=== PATIENT | male | born 1955 | race Caucasian/White ===

== ENCOUNTER 2024-07-19 19:45 | Inpatient (IN) | payer MEDICARE, OTHER, SELFPAY ==
[2024-07-19] VITALS (8 sets, daily range): BP systolic 105–142; BP diastolic 68–87; BMI 27.8; BMI 25.6
--- NOTE | 2024-07-19 16:22 | ED.GENMED ---
History of Present Illness
General
Chief Complaint: Abdominal Pain
Source: patient and spouse
Time Seen by Provider: 07/19/24 16:09
History of Present Illness
History of Present Illness:
68-year-old male presents to the emergent complaining of abdominal pain. Patient states has been having some level of abdominal pain for weeks to months. However the pain became quite severe 3 days ago. The patient has nausea but no vomiting. He
was mildly constipated but this resolved with some dietary changes. The pain in his abdomen is worse with movement. He had a subjective fever Wednesday night when the pain was severe. He has had bilateral hernia repairs but no other abdominal
operations. Patient went for a CT of his abdomen and pelvis at an outpatient imaging center. He was told he had 'a ruptured diverticulitis'. He comes to the emergency room with the disc.
Phy Exam
Physical Exam
Physical Exam:
General: Awake, Alert, Oriented X3. No acute distress.
Vitals: unremarkable
Head: Atraumatic
Eyes: Pupils equal, EOMI
Throat: Airway intact, no exudates
Neck: Trachea midline
Lungs: Clear and equal b/l
Heart: Regular rate, no murmurs
Abd: Soft, significant tenderness left lower quadrant, no significant tenderness elsewhere in the abdomen, No pulsatile mass
Neuro: Nonfocal
Skin: Warm, dry, no rash
Extremities: pulses equal b/l, no edema
Sepsis
Sepsis Screening
Sepsis Assessment: Sepsis Ruled Out
Sepsis Screen
Sepsis Screen: Sepsis Ruled Out
Date: 07/19/24
Time: 19:32
Course
Orders/Labs/Results
Orders:
Orders
07/19/24 16:20
Ketorolac [Toradol] 15 mg IV NOW STA
Ondansetron Injectable [Zofran] 4 mg IV NOW STA
07/19/24 16:21
Lactated Ringers [Lr] 1,000 ml IV BOLUS
07/19/24 16:56
Basic Metabolic Panel Urgent
Complete Blood Count/With Diff Urgent
07/19/24 16:59
HYDROmorphone [Dilaudid] 0.5 mg IV NOW STA
07/19/24 17:29
Piperacillin/Tazo 4.5 Gram [Zosyn] 4.5 gram in 100 ml IV NOW
07/19/24 18:57
Admit/Transfer Patient As Directed
Co-Sign Provider:
Level of Care: Inpatient admission
Assign to:: Medical/Surgical
Physician / Group: Zahra Otto - [facility]
Diagnosis: acute sigmoid diverticulitis with microperforation
Reason for Hospitalization: acute sigmoid diverticulitis with microperforation - IV Abx
Expected length of stay greater than two midnights?: Yes
ELOS- Estimated Length of Stay in days: 3
I certify the patient meets the requirements for IP care: Yes
Code Status As Directed
Resuscitation Status: Full Code
PRN Pain Medication Management As Directed
May give lesser potent ordered pain med per pt: Yes
preference::
Protocol:: Medication orders for pain may be administered in a
manner that supports deferring to patient preference
when the pt is:
- Requesting an ordered lesser potent pain medication.
Least to most potent pain medications are defined
as: acetaminophen < NSAID < tramadol < opioids
(morphine, oxycodone, hydromorphone).
- Requesting a lesser dose of the same medication IF
ORDERED.
- Requesting a less intrusive route of administration
if both routes are prescribed by the provider (PO <
IV).
07/19/24 19:30
HYDROmorphone [Dilaudid] 0.5 mg IV NOW STA
Abnormal Lab Results
07/19/24
16:56
Absolute Lymphs (auto) 0.6 L 10^3/uL
(1.2-3.4)
Absolute Monos (auto) 0.8 H 10^3/uL
(0.1-0.6)
Neutrophils % 78.3 H %
(42.2-75.2)
Lymphocytes % 8.8 L %
(20.5-51.1)
Monocytes % 12.1 H %
(1.7-9.3)
07/19/24 16:56
07/19/24 16:56
Vital Signs
Initial and Last Documented VS:
Initial Vital Signs
Temp Pulse Resp BP Pulse Ox
99.1 F 94 16 142/81 94
07/19/24 15:57 07/19/24 15:57 07/19/24 15:57 07/19/24 15:57 07/19/24 15:57
Last Documented Vital Signs
Temp Pulse Resp BP Pulse Ox
99.1 F 72 15 126/69 93
07/19/24 15:57 07/19/24 18:30 07/19/24 18:30 07/19/24 18:00 07/19/24 18:30
MDM/Problems Addressed
Differential Diagnosis Includes:
Diverticulitis with contained perforation, diverticulitis with free perforation, diverticulitis with abscess
MDM/Problems Addressed:
Patient presents with left lower quad abdominal pain and an abnormal CT. Radiology he reviewed the CT and it does show sigmoid diverticulitis with retroperitoneal air suggestive of a posterior perforation into the retroperitoneal space. Patient
was evaluated by Dr. Sylvester. No indication for emergent surgery. He agrees with hospitalization, IV antibiotics and watchful waiting. Patient added to the hospital service.
*Radiology
Radiology exam reviewed: other
*Pulse Oximetry
Patient hypoxic: no
*Critical Care Note
Total Time (30-74mins, 75-104mins- exclusive of procedures): Not Applicable
ED Attending Note
-
Portions of this chart may have been created with voice recognition software.� Occasional wrong word or��sound alike� substitutions may have occurred due to the inherent limitations of voice recognition software.
Discharge Plan
Departure
Patient Disposition: Admit
Date of Disposition: 07/19/24
Time of Disposition: 17:41
Admit to: Med/Surg
Presentation/result/management discussed w/ accepting MD/DO: Hospitalist
Condition: Fair
Discharge Problem:
Diverticulitis of colon with perforation
Referrals:
Joshua Bettencourt DO [Family Provider] -
Interventions
Interventions:
*Risk Screen - Suicide Last Done: 07/19/24 15:57
*General Assessment Last Done: 07/19/24 16:52
*Neglect/Abuse Screening Last Done: 07/19/24 15:57
ED- Fall Risk Assessment Last Done: 07/19/24 16:52
*ED COVID-19 Vaccine History Last Done: 07/19/24 16:52
QG-Gveafd-Voeexzrjvz Assessment Last Done: 07/19/24 18:37
Discharge Date and Time
Print Language: ICELANDIC
[2024-07-19] MEDS: TORADOL 15 MG IV (16:46)
[2024-07-19] MEDS: ZOFRAN 4 MG IV (16:48)
[2024-07-19] MEDS: LR 1000 IV ×2 (16:51→21:42)
[2024-07-19] MEDS: DILAUDID 0.5 MG IV ×2 (17:02→19:58)
[2024-07-19 17:05] LABS: % Basophils 0.3 % (0-2); % Eosinophils 0.1 % (0-6); % Immature Granulocytes 0.4 % (0-0.5); % Lymphocytes 8.8 % (20.5-51.1); % Monocytes 12.1 % (1.7-9.3); % Neutrophils 78.3 % (42.2-75.2); Absolute Lymphocytes 0.6 10^3/uL (1.2-3.4); Absolute Monocytes 0.8 10^3/uL (0.1-0.6); Absolute Neutrophils 5.3 10^3/uL (1.4-6.5); Hematocrit 43.1 % (39.0-52.0); Hemoglobin 14.4 g/dL (13.0-18.0); Mean Corp Hgb Conc. 33.4 g/dL (33.0-37.0); Mean Corpuscular Hgb 30.4 pg (27.0-31.0); Mean Corpuscular Volume 90.9 fL (80.0-94.0); Mean Platelet Volume 9.7 fL (7.4-10.4); Nucleated Red Blood Cells % 0 % (-); Platelet Count 213 10^3/uL (130-400); Red Blood Cell Count 4.74 10^6/uL (4.70-6.10); Red Cell Dist. Width 13.7 % (11.5-14.5); White Blood Cell Count 6.7 10^3/uL (4.8-10.8)
[2024-07-19 17:23] LABS: Blood Urea Nitrogen 19 mg/dl (9-20); Calcium 8.7 mg/dl (8.4-10.2); Carbon Dioxide 24 mmol/L (22-30); Chloride 99 mmol/L (98-107); Estimated Creatinine Clearance 73 ml/min; Glucose 94 mg/dl (70-99); Potassium 4.1 mmol/L (3.5-5.1); Sodium 135 mmol/L (135-145); eGFR > 60.00
--- NOTE | 2024-07-19 18:17 | W.PN.UPDATE ---
Update Note
Progress Note Update
The patient was seen and examined, and I reviewed his medical record and imaging studies. Full consult to follow.
68-year-old male admitted with his first episode of sigmoid diverticulitis. He has not felt well for several weeks and possibly months. He had some low-grade left-sided abdominal discomfort that became worse recently. He has some chills but no
documented fever. He has had constipation recently and tried different laxatives and diet. He has some nausea but no vomiting. He underwent a recent colonoscopy and was told it was normal. 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
on chemotherapy. He has not had any previous abdominal surgery other than inguinal hernia repairs and an umbilical hernia repair.
On physical examination he is afebrile (temperature 99.1) and his vital signs are stable. He is not tachycardic and he appears nontoxic. He has focal tenderness left lower quadrant with localized rebound but the remaining quadrants are soft.
There is no tympany. His white count is normal. CT scan of the abdomen pelvis that was performed as an outpatient reveals mild inflammation of the sigmoid colon with some localized retroperitoneal air. There is no free intra-abdominal air and
there is no abscess.
I reviewed the current findings with the patient and his and discussed the treatment options. We discussed nonoperative management with antibiotics and bowel rest versus surgery. Surgery at this time could involve a temporary colostomy. We
discussed the risks and benefits of each and the plan is for trial of nonoperative management. Recommend keeping him n.p.o. for now and broad-spectrum antibiotics. Will follow.
[2024-07-19] MEDS: ZOSYN 100 IV (18:27)
--- NOTE | 2024-07-19 19:04 | HPS.HSE ---
Addendum entered and electronically signed by Zahra Otto MD 07/19/24 20:11:
Allergies
Allergy/AdvReac Type Severity Reaction Status Date / Time
No Known Allergies Allergy Unverified 07/19/24 15:57
Home Medications
alfuzosin 10 mg tablet,extended release 24 hr 10 mg PO DAILY 07/19/24
irbesartan 150 mg tablet 150 mg PO DAILY 07/19/24
levothyroxine 75 mcg capsule 75 mcg PO DAILY 07/19/24
omeprazole 40 mg capsule,delayed release 40 mg PO DAILY 07/19/24
pregabalin 150 mg capsule (Lyrica) 150 mg PO DAILY 07/19/24
zolpidem 10 mg tablet (Ambien) 10 mg PO HS 07/19/24
Original Note:
Family Physician
-
Family Physician: Joshua Bettencourt
Chief Complaint
-
abd pain
History of Present Illness
68 y/o M hx of lymphoma (low grade per , not on treatment, followed at [facility]), presents with abd pain. He reports chronic abd pain for weeks to months but in past 3 days became severe. Sharp, LLQ, nonradiating. 12/21. + NAusea no vomiting. Reports
fever Wednesday along with chills. Recently had a colonoscopy - was told its normal. Outpatient had a CT scan via [place] which was interpreted by Colorectal surgery as mild inflammation of the sigmoid colon with some localized retroperitoneal
air. Patient was admitted to hospital for further eval and treatment.
Medical History
Past Medical History
Past Medical History: Reports Other (lymphoma (low grade per , not on treatment, followed at [facility]))
Past Surgical History: Reports Other ( inguinal hernia repairs, umbilical hernia repair)
Social History
Alcohol: None
Drug: None
Personal:
Living: With Family
Family History
Family History: Not pertinent
Allergies / Home Medications
Allergies reflects when Allergies were last updated in [facility].
Home Medications with original date entered in [facility]
Allergy/Medication List:
Allergies
Allergy/AdvReac Type Severity Reaction Status Date / Time
No Known Allergies Allergy Unverified 07/19/24 15:57
Review of Systems
-
A 12 point ROS was completed and negative except as noted: Yes
Physical Exam
Vital Signs
Vital Signs
Temp Pulse Resp BP Pulse Ox
99.1 F 72 15 126/69 93
07/19/24 15:57 07/19/24 18:30 07/19/24 18:30 07/19/24 18:00 07/19/24 18:30
Physical Exam
General: No Apparent Distress
HEENT: NormoCephalic and Anicteric
Respiratory: Clear; No Wheezes
Cardiac: S1/S2 and Regular Rhythm
GI: Tender (localized to LLQ with some rebound, no guarding)
Musculoskeletal: No Edema
Neuro: AO x 3
Hematologic/Lymphatic: No Lymphadenopathy
Psych: Calm
Laboratory Results
-
07/19/24 16:56
07/19/24 16:56
Data Reviewed
-
Lab Data: Labs Reviewed by me
Impression/Plan
-
Assessment:
Acute sigmoid diverticulitis with microperforation
- evaluated by CRS: outpatient CT scan (performed at [facility]) reveals mild inflammation of the sigmoid colon with some localized retroperitoneal air per their note. There is no free intra-abdominal air and there is no abscess
- IVF
- NPO
- Zosyn
Hx of lymphoma, unknown type but low-grade per family
- followed at [facility]
DVT ppx: Lovenox
Code: Full
--- NOTE | 2024-07-19 20:12 | W.PN.UPDATE ---
Update Note
Progress Note Update
additional PMH includes HTN, Hypothyroidism, GERD
[2024-07-19] MEDS: LOVENOX 40 MG SC (21:41)
--- NOTE | 2024-07-19 22:43 | TRANSFER ---
Received pt from ED at 2020 w dx Acute sigmoid diverticulitis. Pt AAOx3 able to make all needs known. Stated LLQ of abdomen TTP but was medicated in ED prior to arrival and has no pain. VS WNL. Discussed w pt diet ordered and pt verbalized
understanding. Call palacios within reach, safety maintained.
[2024-07-19] MEDS: ZOSYN 50 IV (23:35)
[2024-07-19] MEDS: AMBIEN 10 MG PO (23:35)
[2024-07-19] MEDS: MORPHINE SULFATE 2 MG IV (23:37)
[2024-07-20] MEDS: TYLENOL 650 MG PO ×2 (02:52→21:11)
[2024-07-20] MEDS: SYNTHROID 75 MCG PO (05:33)
[2024-07-20] MEDS: ZOSYN 50 IV ×3 (05:33→17:41)
[2024-07-20 05:44] LABS: Hematocrit 38.8 % (39.0-52.0); Hemoglobin 13.3 g/dL (13.0-18.0); Mean Corp Hgb Conc. 34.3 g/dL (33.0-37.0); Mean Corpuscular Hgb 31.4 pg (27.0-31.0); Mean Corpuscular Volume 91.5 fL (80.0-94.0); Mean Platelet Volume 9.5 fL (7.4-10.4); Platelet Count 196 10^3/uL (130-400); Red Blood Cell Count 4.24 10^6/uL (4.70-6.10); Red Cell Dist. Width 13.7 % (11.5-14.5)
[2024-07-20 06:06] LABS: Blood Urea Nitrogen 17 mg/dl (9-20); Calcium 8.4 mg/dl (8.4-10.2); Carbon Dioxide 27 mmol/L (22-30); Chloride 99 mmol/L (98-107); Estimated Creatinine Clearance 67 ml/min; Glucose 103 mg/dl (70-99); Sodium 134 mmol/L (135-145); eGFR > 60.00
[2024-07-20 07:33] VITALS: BP 142/74
[2024-07-20] MEDS: MORPHINE SULFATE 2 MG IV ×3 (07:40→22:32)
[2024-07-20] MEDS: PROTONIX 40 MG PO (07:50)
[2024-07-20] MEDS: FLOMAX 0.4 MG PO (07:50)
[2024-07-20] MEDS: AVAPRO 150 MG PO (07:50)
[2024-07-20] MEDS: LYRICA 150 MG PO (07:50)
--- NOTE | 2024-07-20 09:22 | CON.CRS ---
Consultation
-
Date/Time Consultation Requested: 07/19/2024, 20:30
Date/Time Consultation Performed: 07/20/2024, 08:20
Requesting Provider: Zahra Otto MD
Performing Provider: Magdy Hardin MD
Reason for Consultation: diverticulitis
Medical History
-
Chief Complaint: abdominal pain
History of Present Illness:
68-year-old male presents to [facility] complaining of abdominal pain for several months. Associated with this is intermittent nausea. The pain is localized to the left side that recently became worse. He states he has had occasional chills
but no fevers. More recently he has had constant the patient and has been on laxatives. He apparently underwent a colonoscopy recently and was told it was normal (no report available). He denies previous abdominal surgeries. He has a low-grade
lymphoma that is currently being treated at [place] but is unable to elaborate further. He has not undergone chemotherapy. He has gone to several different hospitals in the area for this condition.
CT of the abdomen pelvis performed as an outpatient shows mild inflammation of the sigmoid colon with some localized retroperitoneal air. There is no free air in the abdomen or abscess noted. His WBC was normal upon admission. He has remained
afebrile and his vitals are normal. This is his first episode of diverticulitis. Given the CT, we have been consulted for further surgical opinion.
Past Medical History
Past Medical History: Other (lymphoma, HTN, hypothyroidism, GERD)
Past Surgical History: Other (inguinal hernia repairs, umbilical hernia repair)
Social History
Tobacco: Non-Smoker
Alcohol: None
Drug: None
Personal:
Family History
Family History: Reviewed & Not Pertinent
Allergies / Home Medications
Allergy/AdvReac Type Severity Reaction Status Date / Time
No Known Allergies Allergy Unverified 07/19/24 15:57
�Medication �Instructions �Recorded �Confirmed �Type
alfuzosin 10 mg tablet,extended 10 mg PO DAILY 07/19/24 07/19/24 History
release 24 hr
irbesartan 150 mg tablet 150 mg PO DAILY 07/19/24 07/19/24 History
levothyroxine 75 mcg capsule 75 mcg PO DAILY 07/19/24 07/19/24 History
omeprazole 40 mg capsule,delayed 40 mg PO DAILY 07/19/24 07/19/24 History
release
pregabalin 150 mg capsule (Lyrica) 150 mg PO DAILY 07/19/24 07/19/24 History
zolpidem 10 mg tablet (Ambien) 10 mg PO HS 07/19/24 07/19/24 History
Review of Systems
-
History Source: Patient
Abdomen/GI: Abdominal Pain and Nausea
A 10 point review of systems was completed, and was negative except as per HPI.
Physical Exam
Vital Signs
Temp 98.8 F 07/20/24 07:33
Pulse 72 07/20/24 07:33
Resp Rate 17 07/20/24 07:33
Blood pressure 142/74 07/20/24 07:33
SaO2 98 07/20/24 07:33
07/19/24 07/20/24 07/21/24
06:59 06:59 06:59
Actual Weight 83.098 kg
Body Mass Index (BMI) 25.6
Lab Results / Allergies
07/20/24 05:20
07/20/24 05:20
WBC 6.0 10^3/uL (4.8-10.8) 07/20/24 05:20
Hgb 13.3 g/dL (13.0-18.0) 07/20/24 05:20
Hct 38.8 % (39.0-52.0) L 07/20/24 05:20
Plt Count 196 10^3/uL (130-400) 07/20/24 05:20
Abs Immat Gran (auto) 0.0 10^3/uL (0-0.05) 07/19/24 16:56
Neutrophils % 78.3 % (42.2-75.2) H 07/19/24 16:56
Allergy/AdvReac Type Severity Reaction Status Date / Time
No Known Allergies Allergy Unverified 07/19/24 15:57
Physical Exam
General: Well Developed and Well Nourished
GI: Soft, Non Distended and Tender (left sided - mild)
Skin: Warm and Dry
Neuro: AO x 3
Psych: Calm
Data Reviewed
-
CT Scan: Image Personally Visualized and interpreted, Report Reviewed by me and Discussed with Patient
Labs: Labs Reviewed by me, Discussed with Physician and Discussed with Family
Old Records: Reviewed
Assessment / Plan
-
Assessment: 68 yo male admitted with first attack of sigmoid diverticulitis
Plan:
-No plans for surgery at this time. If he were to worsen he would require a colectomy with colostomy creation.
-Continue IV antibiotics
-Advance diet to clears
-Trend vital signs and lab work
-Will follow
--- NOTE | 2024-07-20 09:51 | CM ---
Reviewed the chart notes and spoke with the patient at the bedside. The patient resides with his spouse in a two story home with two steps to enter. The patient reports no DME/VN/SNF. The patient confirmed his pharmacy of choice is [facility] [place] and his PCP is Joshua Bettencourt. CM continues to be available to patient/family and is monitoring medical plan for needs at discharge.
Plan: Discharge plans will depend on the patient's progress.
--- NOTE | 2024-07-20 12:39 | W.PN.HOSP.TC ---
Today's Communication/Plan
-
maintain on abx
trial of CL diet
pain control
Assessment / Plan
Assessment / Plan
1. Acute sigmoid diverticulitis with suspected microperforation
-Symptoms ongoing for few weeks
-Outpatient CT abdomen pelvis showing sigmoid colon inflammation with some localized retroperitoneal air
-Colorectal surgeon evaluated and recommended conservative management with IV antibiotics
-Patient started on trial of clear liquid diet
-Eventual partial colon resection and colostomy will be required if symptoms not improved
2. GERD
-maintain on Protonix
3. Essential hypertension
-Continue irbesartan home dose
4. Hypothyroidism
-Maintain on levothyroxine 75 mcg daily
5. Insomnia
-Avoid using Ambien with negative narcotics in hospital for possible
DVT prophylaxis -Lovenox
Full code
Total time spent : 52 mins
Anticipated Discharge: > 48 hours
Subjective/Interval History
-
Date of Service: July 20, 2024
Some left lower quadrant abdominal tenderness
No nausea vomiting
Afebrile overnight
Objective Data
-
Labs:
Laboratory Results
07/20/24
05:20
WBC 6.0
Hgb 13.3
Hct 38.8 L
Plt Count 196
Sodium 134 L
Potassium 4.0
Chloride 99
Carbon Dioxide 27
BUN 17
Creatinine 1.1
Glucose 103 H
Calcium 8.4
Vital Signs:
Vital Signs
Temp Pulse Resp BP Pulse Ox
98.8 F 72 17 142/74 98
07/20/24 07:33 07/20/24 07:33 07/20/24 07:33 07/20/24 07:33 07/20/24 07:39
I&O
07/19/24 07/20/24 07/21/24
06:59 06:59 06:59
Intake Total 739 / 739
Balance 739 / 739
Review of Systems
-
Respiratory: Reports No Symptoms
Cardiac: Reports No Symptoms
Abdomen/GI: Reports Abdominal Pain; Denies Nausea, Vomiting or Diarrhea
Physical Exam
-
General: No Apparent Distress and Comfortable
HEENT: Negative Oxygen
Respiratory: Clear to Auscultation
Cardiac: Regular Rhythm and S1/S2; Negative Murmur or Rub
GI: Soft, Nondistended, Normal Bowel Sounds and Tender (LLQ)
Musculoskeletal: No Edema
Neuro: Awake, Alert, Oriented, No Motor Deficits and Nonfocal/Grossly Intact
Psych: Calm
[2024-07-20 14:52] VITALS: BP 131/77
[2024-07-20] MEDS: LOVENOX 40 MG SC (17:41)
[2024-07-20 19:07] LABS: Hepatitis C Antibody Negative (Negative)
--- NOTE | 2024-07-20 20:29 | PTCARENOTE ---
Pt presents w/flu like symptoms (headache, backache, low grade temp, sweating, moist non prod cough). endorsed he tested + on Wednesday via PCP. BIOMEDICAL ENGINEERING DIRECTOR covering house contacted, electronic orders received. Flu A+, Nursing Cushion Builder made aware.
Isolation precautions in place.
[2024-07-20] MEDS: AMBIEN 10 MG PO (21:12)
[2024-07-20 23:47] VITALS: BP 140/78
[2024-07-21] MEDS: ZOSYN 50 IV ×5 (00:08→23:52)
[2024-07-21] MEDS: SYNTHROID 75 MCG PO (05:00)
[2024-07-21] MEDS: MORPHINE SULFATE 2 MG IV ×3 (05:06→23:53)
[2024-07-21 05:31] LABS: Hematocrit 40.3 % (39.0-52.0); Hemoglobin 13.8 g/dL (13.0-18.0); Mean Corp Hgb Conc. 34.2 g/dL (33.0-37.0); Mean Corpuscular Hgb 31.2 pg (27.0-31.0); Mean Corpuscular Volume 91.2 fL (80.0-94.0); Mean Platelet Volume 9.8 fL (7.4-10.4); Platelet Count 192 10^3/uL (130-400); Red Blood Cell Count 4.42 10^6/uL (4.70-6.10); Red Cell Dist. Width 13.5 % (11.5-14.5); White Blood Cell Count 3.9 10^3/uL (4.8-10.8)
[2024-07-21 05:57] LABS: Blood Urea Nitrogen 12 mg/dl (9-20); Calcium 8.7 mg/dl (8.4-10.2); Carbon Dioxide 30 mmol/L (22-30); Chloride 99 mmol/L (98-107); Estimated Creatinine Clearance 73 ml/min; Glucose 99 mg/dl (70-99); Potassium 3.8 mmol/L (3.5-5.1); Sodium 137 mmol/L (135-145); eGFR > 60.00
[2024-07-21 07:35] VITALS: BP 139/79
[2024-07-21] MEDS: AVAPRO 150 MG PO (07:57)
[2024-07-21] MEDS: LYRICA 150 MG PO (07:57)
[2024-07-21] MEDS: PROTONIX 40 MG PO (07:58)
[2024-07-21] MEDS: FLOMAX 0.4 MG PO (07:58)
[2024-07-21] MEDS: ROXICODONE 5 MG PO (08:01)
[2024-07-21] MEDS: ALPRAZOLAM ODT 0.25 MG PO ×3 (09:27→22:11)
--- NOTE | 2024-07-21 10:01 | W.PN.CRS1 ---
Today's Communication / Plan
-
Full liquid diet
No plans for surgery
Notified hospitalist of anxious presentation
Assessment/Plan
-
Assessment: 68 yo male admitted with first attack of sigmoid diverticulitis also with influenza A
WBC: 3.9, vitals normal
Plan:
-No plans for surgery at this time. If he were to worsen he would require a colectomy with colostomy creation. We emphasized that the patient does not need surgery.
-Continue IV antibiotics
-Advance diet to full liquids
-Trend vital signs and lab work
-I have notified the hospitalist given the patient's anxious presentation. The patient is amenable to meet with psychiatry and I have notified the hospitalist of this.
-Will follow
Subjective Data
Subjective Data
Date of Service: July 21, 2024
Patient states he is having left lower quadrant pain. He is having bowel movements. He describes the pain as 'crampy in nature'. The patient also feels a lot of anxiety and is taking deep breaths while we are talking to him and is very emotional
at bedside.
Objective Data
-
Vital Signs
Temp Pulse Resp BP Pulse Ox
98.6 F 66 16 139/79 96
07/21/24 07:35 07/21/24 07:35 07/21/24 07:35 07/21/24 07:35 07/21/24 08:00
Intake & Output
07/20/24 07/21/24 07/22/24
06:59 06:59 06:59
Intake Total 739 / 739 100 / 100
Balance 739 / 739 100 / 100
Intake:
Oral fluids 120 / 120
IV fluids (Total) 519 / 519
IV piggybacks 100 / 100 100 / 100
Other:
Number of approximated MODERATE 1 1
amounts of urine
Lab Results
07/21/24 04:54
07/21/24 04:54
Physical Exam
-
General: No Acute Distress and AOx3
Abdomen: Soft, Non Distended and Tender (Mild to moderate)
Skin: Warm and Dry
--- NOTE | 2024-07-21 11:12 | CM ---
Reviewed the chart notes. Patient ambulating in room ad sloane. Per notes, full liquid diet. No plans for surgery. CM continues to be available to patient/family and is monitoring medical plan for needs at discharge.
Plan: Discharge to home when medically stable. No needs anticipated at this time.
--- NOTE | 2024-07-21 13:31 | W.PN.HOSP.TC ---
Today's Communication/Plan
-
maintain on abx
provide xanax for anx
Assessment / Plan
Assessment / Plan
1. Acute sigmoid diverticulitis with suspected microperforation
-Symptoms ongoing for few weeks
-Outpatient CT abdomen pelvis showing sigmoid colon inflammation with some localized retroperitoneal air
-Colorectal surgeon evaluated and recommended conservative management with IV antibiotics
-Eventual partial colon resection and colostomy will be required if symptoms not improved
-Started on [place] diet today
-No leukocytosis/remains afebrile.
2. GERD
-maintain on Protonix
3. Essential hypertension
-Continue irbesartan home dose
4. Hypothyroidism
-Maintain on levothyroxine 75 mcg daily
5. Insomnia
-Avoid using Ambien with negative narcotics in hospital for possible
6. Alcohol use disorder
-Last drink was 1 week back, usually drinks 1 drink at night
-no concern for withdrawal
7. Gen Anxiety disorder
-Patient informed about ongoing social stressors
-Xanax as needed ordered
-Emotional support provided.
DVT prophylaxis -Lovenox
Full code
Anticipated Discharge: 24 - 48 hours
Subjective/Interval History
-
Date of Service: July 21, 2024
Patient anxious and was concerned about discussion about needing surgery
Patient have other social stressors ongoing
Denies any excessive abdominal pain/nausea
no other reported problems
Objective Data
-
Labs:
Laboratory Results
07/21/24
04:54
WBC 3.9 L
Hgb 13.8
Hct 40.3
Plt Count 192
Sodium 137
Potassium 3.8
Chloride 99
Carbon Dioxide 30
BUN 12
Creatinine 1.0
Glucose 99
Calcium 8.7
Vital Signs:
Vital Signs
Temp Pulse Resp BP Pulse Ox
98.6 F 66 16 139/79 96
07/21/24 07:35 07/21/24 07:35 07/21/24 07:35 07/21/24 07:35 07/21/24 08:00
I&O
07/20/24 07/21/24 07/22/24
06:59 06:59 06:59
Intake Total 739 / 739 100 / 100
Balance 739 / 739 100 / 100
Review of Systems
-
Respiratory: Reports No Symptoms
Cardiac: Reports No Symptoms
Abdomen/GI: Denies Abdominal Pain, Nausea or Vomiting
Physical Exam
-
General: No Apparent Distress and Comfortable
HEENT: Negative Oxygen
Respiratory: Clear to Auscultation
Cardiac: Regular Rhythm and S1/S2; Negative Murmur or Rub
GI: Soft, Nondistended, Normal Bowel Sounds and Tender (LLQ)
Musculoskeletal: No Edema
Neuro: Awake, Alert, Oriented, No Motor Deficits and Nonfocal/Grossly Intact
Psych: Calm
[2024-07-21 15:40] VITALS: BP 113/80
[2024-07-21] MEDS: LOVENOX 40 MG SC (17:20)
[2024-07-21 22:16] VITALS: BP 130/80
[2024-07-21] MEDS: AMBIEN 10 MG PO (23:53)
[2024-07-22] MEDS: ZOSYN 50 IV ×2 (06:00→12:20)
[2024-07-22] MEDS: SYNTHROID 75 MCG PO (06:00)
[2024-07-22] MEDS: FLUSH (NSS) 1 FLUSH IV (06:01)
[2024-07-22 07:25] VITALS: BP 146/78
[2024-07-22] MEDS: AVAPRO 150 MG PO (08:04)
[2024-07-22] MEDS: LYRICA 150 MG PO (08:04)
[2024-07-22] MEDS: PROTONIX 40 MG PO (08:04)
[2024-07-22] MEDS: FLOMAX 0.4 MG PO (08:04)
[2024-07-22] MEDS: ALPRAZOLAM ODT 0.25 MG PO (08:12)
[2024-07-22 09:10] LABS: Blood Urea Nitrogen 13 mg/dl (9-20); Calcium 9.2 mg/dl (8.4-10.2); Carbon Dioxide 31 mmol/L (22-30); Chloride 101 mmol/L (98-107); Estimated Creatinine Clearance 73 ml/min; Glucose 90 mg/dl (70-99); Potassium 4.1 mmol/L (3.5-5.1); Sodium 139 mmol/L (135-145); eGFR > 60.00
[2024-07-22 09:13] LABS: Hematocrit 44.8 % (39.0-52.0); Hemoglobin 15.5 g/dL (13.0-18.0); Mean Corp Hgb Conc. 34.6 g/dL (33.0-37.0); Mean Corpuscular Hgb 31.3 pg (27.0-31.0); Mean Corpuscular Volume 90.5 fL (80.0-94.0); Platelet Count 235 10^3/uL (130-400); Red Blood Cell Count 4.95 10^6/uL (4.70-6.10); Red Cell Dist. Width 13.4 % (11.5-14.5); White Blood Cell Count 3.2 10^3/uL (4.8-10.8)
--- NOTE | 2024-07-22 10:38 | W.PN.GS2 ---
Addendum entered and electronically signed by Wero Kirkpatrick MD 07/22/24 11:12:
Patient seen and examined. Agree with assessment plan as documented below.
Feels improved. No major complaints. Pain improving. Denies any nausea or vomiting. Passing flatus and stools.
Gen: NAD
Abd: soft, NT, ND, non-peritoneal
Patient is a 68 yo M admitted with sigmoid diverticulitis also influenza A
AFVSS
Labs stable
Much improved with medical management: ABX, bowel rest
--LRD
--Continue ABX, transition to PO upon d/c
--OK for d/c from surgical standpoint once tolerating diet
Original Note:
Today's Communication / Plan
-
Advance diet
Dispo planning
Assessment / Plan
-
68 yo male admitted with sigmoid diverticulitis also influenza A
AFVSS
Labs stable
Much improved with medical management: ABX, bowel rest
--Ok to advance to LRD
--Continue ABX, transition to PO upon d/c
--Ok for d/c from surgical standpoint once tolerating diet
Subjective Data
-
Date of Service: July 22, 2024
Patient seen and examined at bedside with Dr. Kirkpatrick. Denies n/v. Pain much improved, nearly resolved. Ambulating in halls. Appetite returning. Has been passing flatus/stools.
Objective Data
-
Intake and Output
07/21/24 07/22/24 07/23/24
06:59 06:59 06:59
Intake Total 100 / 100 1520 / 1520
Balance 100 / 100 1520 / 1520
Intake:
Oral fluids 1520 / 1520
IV piggybacks 100 / 100
Other:
Number of approximated MODERATE 1 2
amounts of urine
Vital Signs
Temp Pulse Resp BP Pulse Ox
98.9 F 61 16 146/78 98
07/22/24 07:25 07/22/24 07:25 07/22/24 07:25 07/22/24 07:25 07/22/24 08:00
Lab Results
07/22/24 08:04
07/22/24 08:04
Calcium 9.2 mg/dl (8.4-10.2) 07/22/24 08:04
Physical Exam
-
NAD
ABD soft, nt, nd
[2024-07-22] MEDS: ROXICODONE 5 MG PO (13:15)
[2024-07-22 14:31] VITALS: BP 154/80
--- NOTE | 2024-07-22 14:33 | W.PN.HOSP.TC ---
Today's Communication/Plan
-
d/c home
Assessment / Plan
Assessment / Plan
1. Acute sigmoid diverticulitis with suspected microperforation
-Symptoms ongoing for few weeks
-Outpatient CT abdomen pelvis showing sigmoid colon inflammation with some localized retroperitoneal air
-Colorectal surgeon evaluated and recommended conservative management with IV antibiotics
-No leukocytosis/remains afebrile.
-Tolerated trial of low residue diet
2. GERD
-maintain on Protonix
3. Essential hypertension
-Continue irbesartan home dose
4. Hypothyroidism
-Maintain on levothyroxine 75 mcg daily
5. Insomnia
-Avoid using Ambien with negative narcotics in hospital for possible
6. Alcohol use disorder
-Last drink was 1 week back, usually drinks 1 drink at night
-no concern for withdrawal
7. Gen Anxiety disorder
-Patient informed about ongoing social stressors
-Xanax as needed ordered
-Emotional support provided.
DVT prophylaxis -Lovenox
Full code
More than 30 minutes spent in discharge including
Final examination of the patient
Summarizing hospital stay
Instructions for continuing care to all relevant caregivers
Preparation of discharge records, prescriptions, and referral forms
Total time spent (in minutes): 38 mins
Anticipated Discharge: Today
Subjective/Interval History
-
Date of Service: July 22, 2024
no abd pain/nausea/vomiting
no fever
Objective Data
-
Labs:
Laboratory Results
07/22/24
08:04
WBC 3.2 L
Hgb 15.5
Hct 44.8
Plt Count 235 D
Sodium 139
Potassium 4.1
Chloride 101
Carbon Dioxide 31 H
BUN 13
Creatinine 1.0
Glucose 90
Calcium 9.2
Vital Signs:
Vital Signs
Temp Pulse Resp BP Pulse Ox
98.9 F 74 16 154/80 97
07/22/24 14:31 07/22/24 14:31 07/22/24 14:31 07/22/24 14:31 07/22/24 14:31
I&O
07/21/24 07/22/24 07/23/24
06:59 06:59 06:59
Intake Total 100 / 100 1520 / 1520
Balance 100 / 100 1520 / 1520
Review of Systems
-
Respiratory: Reports No Symptoms
Cardiac: Reports No Symptoms
Abdomen/GI: Reports No Symptoms
Physical Exam
-
General: No Apparent Distress and Comfortable
HEENT: Negative Oxygen
Respiratory: Clear to Auscultation
Cardiac: Regular Rhythm and S1/S2; Negative Murmur or Rub
GI: Soft, Normal Bowel Sounds and Tender (LLQ)
Musculoskeletal: No Edema
Neuro: Awake, Alert, Oriented, No Motor Deficits and Nonfocal/Grossly Intact
Psych: Calm
--- NOTE | 2024-07-22 16:57 | W.DCSUMMARY ---
Discharge Summary
Discharge Data
Date of Admission: 07/19/24
Date of Discharge: 07/22/24
-
Pending Results: No
Hospital Course
Discharging Physician : Dr Sean Castro
Disposition : To home
Primary care physician : Dr Joshua Bettencourt
Principal Discharge diagnosis :
Sigmoid diverticulitis with microperforation
Generalized anxiety disorder
Chronic Discharge diagnosis :
Low-grade lymphoma
Gastroesophageal reflux disease
Essential hypertension
Hypothyroidism
Alcohol use disorder
Hospital Course :
Patient is a 68-year-old male with no mentioned past medical history came to ER for having ongoing lower abdominal pain for few weeks to months. Patient had outpatient CT abdomen pelvis which showed sigmoid diverticulitis, images were reviewed by
colorectal surgery and patient was felt to having microperforation as well. Patient was started on empiric antibiotic and was admitted for further monitoring. Over next 72 hours patient symptoms improved slowly and did not have any further
issues. Patient diet was slowly advanced and at discharge patient was provided 10 more days of oral antibiotic therapy. Patient to follow-up with colorectal surgery in office postdischarge.
Patient also having generalized anxiety disorder and was provided benzodiazepine. Discussed need for follow-up with psychiatry and patient considering.
Post medical stabilization patient was discharged home.
Important imaging findings :
None
Procedure findings :
None
Discharge Plan
-
Patient Disposition: Home (Routine Discharge)
Discharge Diagnosis/Procedures: Sigmoid diverticulitis, Infleunza A infection
Condition: Fair
Diet: Other diet
Additional Diets: Low residue diet for the next several weeks, then add back in fiber as tolerated
Activity: As tolerated
Driving Restrictions: No driving
Bathing Restrictions: OK to Shower
Instructions: Low-fiber diet
Referrals:
Fidel Sylvester MD [Active] - in two to three weeks
Joshua Bettencourt DO [Family Provider] - in one week
Prescriptions:
New
acetaminophen 325 mg Tablet
650 mg PO Q4HPRN PRN (Reason: mild pain/GUERIN/temp> 100.4F) Qty: 30 0RF
amoxicillin-pot clavulanate 875-125 mg tablet
1 tab PO BID Qty: 20 0RF
Visbiome 112.5 billion cell capsule
1 cap PO DAILY Qty: 14 0RF
oxycodone 5 mg tablet
5 mg PO Q8H PRN (Reason: sev pain) Qty: 10 0RF
lorazepam [Ativan] 0.5 mg tablet
0.5 mg PO Q8HPRN PRN (Reason: Anxiety) Qty: 10 0RF
Continued
omeprazole 40 mg Capsule,Delayed Release(Dr/Ec)
40 mg PO DAILY
irbesartan 150 mg Tablet
150 mg PO DAILY
zolpidem [Ambien] 10 mg Tablet
10 mg PO HS
alfuzosin 10 mg Tablet Extended Release 24 Hr
10 mg PO DAILY
levothyroxine 75 mcg Capsule
75 mcg PO DAILY
pregabalin [Lyrica] 150 mg Capsule
150 mg PO DAILY
Discharge Orders:
Discharge Patient (As Directed); Ordered 07/22/24
Ordered By: Sean Castro
Discharge Date and Time
Discharge Date/Time: 07/22/24 15:04
Print Language: LIBYAN
== END 2024-07-22 15:04 | disposition home or self-care (01) | DRG 392 ==
LOC: 2 SOUTH 19:45
PROVIDERS: ADMITTING PHYSICIAN Internal Medicine; ATTENDING PHYSICIAN Hospitalist; CONSULT PHYSICIAN Surgery; EMERGENCY PHYSICIAN Emergency Medicine; FAMILY PHYSICIAN Family Medicine
DX: K57.20 Diverticulitis of large intestine with perforation and abscess without bleeding (principal); C85.90 Non-Hodgkin lymphoma, unspecified, unspecified site; F41.1 Generalized anxiety disorder; K21.9 Gastro-esophageal reflux disease without esophagitis; I10 Essential (primary) hypertension; E03.9 Hypothyroidism, unspecified; J10.1 Influenza due to other identified influenza virus with other respiratory manifestations
CPT/HCPCS: 80048; 85025; 85027; 86803; 87502; 96361; 96365; 96375; 96376; 99284